=== PATIENT | male | born 1975 | race Caucasian/White ===

== ENCOUNTER → 2024-08-04 17:00 | Outpatient (REF) | payer OTHER, SELFPAY | LOC: RAD 17:00 | PROVIDERS: ATTENDING PHYSICIAN Chiropractor; FAMILY PHYSICIAN Nurse Practitioner | DX: M99.01 Segmental and somatic dysfunction of cervical region (principal); M99.03 Segmental and somatic dysfunction of lumbar region | CPT/HCPCS: 72050; 72110 ==